=== PATIENT | male | born 1940 | race Caucasian/White ===

== ENCOUNTER 2016-08-16 13:56 | Day surgery (SDC) | payer MEDICARE ==
[~2016-08-16] VITALS: Ht 160 cm; Wt 99.0 kg
--- NOTE | 2016-08-16 06:52 | PCM.HPANE ---
Patient Data Surgeon Admitting Provider: Attending Provider:Brandt Esparza MD Primary Care Physician:Cruzito Canchola MD Other Provider:Starr Dowlingingham Anesthesia Reason for Visit Prostate Cancer Ht/WT & BMI Height (Feet): 5 Height (Inches): 3 Weight (Kilograms): 92.986 Body Mass Index 36.00 Allergies Coded Allergies: Phenylpiperazine Antidepressant (Verified Allergy, Unknown, UNKNOWN, ) Sulfa (Sulfonamide Antibiotics) (Verified Allergy, Unknown, UNKNOWN, ) pramipexole (Verified Allergy, Unknown, UNKNOWN, 08/16/16) Past Anesthesia History Anesthesia History: Denies:: Anesthesia Reactions, Malignant Hyperthermia Diabetes History Hx Diabetes?: No MRSA MRSA: No Medications Hypertension Medication: Yes (TRIAMTERENE/HCTZ) Reported Medications Rasagiline Mesylate (Azilect)1 Mg Tablet1 Mg PO DAILY 08/11/16 Carbidopa/Levodopa 25-250 mg 1 Each Tablet1 Tablet PO 5X/DAY 08/11/16 Donepezil 10 Mg Sryjed06 Mg PO HS Ref 0 08/11/16 Triamterene/HCTZ 37.5-25 mg 1 Each Capsule1 Capsule PO DAILY Ref 0 08/11/16 Discontinued Reported Medications Leuprolide Acetate (Lupron Depot)22.5 Mg Disp.syrin22.5 Mg IM Q 90 DAYS PLEASE VERIFY DOSAGE 08/11/16 History History of ENT Problems?: No Hx of Heart Problems?: Yes Cardiovascular History: Positive for:: Edema Hypertension Denies:: Heart Murmur Hx of Respiratory Problem?: No Respiratory History: Denies:: Use of C-PAP Machine Hx Neurologic Problems?: Yes Neurological History: Positive for:: Dementia (MILD) Parkinson's Disease (ADVANCING/TREMORS) Hx of GI Problems?: Yes Other GI Pertinent History: S/P COLON RESECTION Hx of Problems?: Yes Genitourinary History: Positive for:: Urinary Tract Infection (HX OF) Other Pertinent History: ED Male Hx: Positive for:: Prostate Problems (PROSTATE CA=CURRENT PROBLEM (PT DECLINES MORE INVASIVE TX)) Denies:: Scrotal Mass Testicular Surgery Skin History: Denies:: History Skin Disorders? Pressure Ulcers Hx Musculoskeletal Problems?: Yes Musculoskeletal History: Positive for:: Degenerative Joint (KYPHOSIS) Osteoarthritis (OSTEOPOROSIS) Hx of Psycho/Social Problems?: No Hx Surgeries?: Yes (COLON RESECTION) Hx Any Other Health Problems?: Yes Other History: Positive for:: Cancer (PROSTATE) Denies:: Endocrine Disease Hospitalization Thyroid Disease Hx Diabetes: No Hx Alcohol Use: NoHave You Smoked inLast 12 mo: No Stop/Bang S-Snoring: Do You Snore Loudly: No T-Tired: feel tired, fatigued: No O-Obsered: Observed not breath: No P-Blood Pressure: treated: Yes B- Body Mass Index > 35 kg/m2: Yes A- Age over 50: Yes N- Neck Large Circumference: No G- Gender Male: Yes JOSE ANGEL Total Score: 4 Risk Assessment Category Category 1A: Patient has history of documented sleep apnea, and HAS NOT received any narcotic, sedative or anesthesia administration during this stay. Category 1B: Patient has history of documented sleep apnea, and HAS received any narcotic , sedative or anesthesia administration during this stay Category 2: Patient has SUSPECTED Obstructive Sleep Apnea, and HAS received any narcotic , sedative or anesthesia administration during this stay. Category 3: Patient has SUSPECTED Obstructive Sleep Apnea and HAS NOT received narcotic, sedative or anesthesia administration during this stay. Category 4: Outpatient in Procedural Areas with known sleep apnea or who screen positive for High Risk via the STOP/BANG questionnaire. Exam Exam General Appearance: Alert, Oriented X3, Cooperative, Mild Distress HEENT/AIRWAY: MP 4, Neck Movement (No neck movement, sore neck, Thick Neck, Chan), Mouth Opening (moderate) Lungs: Clear to Auscultation Heart: Exam Unremarkable Plan Impression Patient chart reviewed, patient interviewed and anesthestic plan with risks, benefits, and alternatives discussed, and informed consent obtained. ASA Physical Status: ASA3 Severe Disease Anesthetic Plan: SAB Bene/Risks/Altern/Consents: Yes HP Complete Prior to Induction: Yes Michael Zapien MD Aug 16, 2016 06:52
[~2016-08-16 13:56] MED LIST: Acetaminophen IV 1,000 MG in IV Premix 1 EACH IV ONE; Bupivacaine Liposome 1.3% 20 mL Inj INFILTRATE SCH; CARB1TAB17 PO; CeFAZolin Inj 2 GM in IV Premix 1 EACH IV ONE; DONE10TA42 PO; Lactated Ringer's 1,000 ML IV ONE; RASA1TAB2 PO; TRIA1CAP5 PO; [UNRECOGNIZED DRUG - CODE] IM
[2016-08-16 14:54] VITALS: BP 111/77; PULSE 60; RESP 16; O2SAT 97
[2016-08-16] MEDS ORDERED: Lactated Ringer's 1,000 ML IV SCH (15:57)
[2016-08-16] MEDS ORDERED: Lactated Ringer's 500 ML IV PRN (15:57)
[2016-08-16] MEDS ORDERED: HYDROmorphone 1 mg/mL Inj IVPUSH PRN (16:00)
[2016-08-16] MEDS ORDERED: Ondansetron 2 mg/mL 2 mL Inj IVPUSH PRN (16:00)
[2016-08-16] MEDS ORDERED: Labetalol 5 mg/mL 4 mL Inj IV PRN (16:00)
[2016-08-16] MEDS ORDERED: hydrALAZINE 20 mg/mL Inj IVPUSH PRN (16:00)
[2016-08-16] MEDS ORDERED: fentaNYL-PF 50 mCg/mL 2 mL Inj IVPUSH PRN (16:00)
[2016-08-16] MEDS ORDERED: Atropine 0.4 mg/mL Inj IVPUSH PRN (16:00)
[2016-08-16] MEDS ORDERED: hydrOXYzine Inj 25 MG/1 mL SDV IM PRN (16:00)
[2016-08-16] MEDS ORDERED: Dexamethasone 4 mg/mL Inj IVPUSH PRN (16:00)
[2016-08-16] MEDS ORDERED: Phenylephrine 10,000 mCg/mL Inj IVPUSH PRN (16:00)
[2016-08-16] MEDS ORDERED: EPHEDrine Sulfate 50 mg/mL Inj IM PRN (16:00)
[2016-08-16] MEDS ORDERED: EPHEDrine Sulfate 50 mg/mL Inj IVPUSH PRN (16:00)
[2016-08-16] MEDS ORDERED: Bacitracin Ointment Packet TOPICAL ONE (16:25)
[2016-08-16 16:55] VITALS: BP 124/72; PULSE 76; RESP 12; O2SAT 94
[2016-08-16 17:00] VITALS: BP 150/72; PULSE 72; RESP 14; O2SAT 95
[2016-08-16 17:10] VITALS: BP 146/76; PULSE 61; RESP 16; O2SAT 96
--- NOTE | 2016-08-16 17:12 | PCM.ANEP1 ---
Post Anesthesia Phase 1 PACU Phase 1 Assessment Vital Signs Vital Signs Date Time Temp Pulse Resp B/P Pulse Ox O2 Delivery O2 Flow Rate FiO2 08/16/16 14:54 36.5 60 16 111/77 97 Room Air Anesthetic Administered: GA Level of Alertness: Awake, talking REESE's with Equal Strength: Yes Pain: No Nausea or Vomiting: No Oxygen Delivery: Room Air Lungs: Normal Air Movement Michael Zapien MD Aug 16, 2016 17:12
[2016-08-16 17:34] VITALS: BP 176/88; PULSE 73; RESP 18; O2SAT 97
--- NOTE | 2016-08-16 17:46 | PCM.ANEP2 ---
Post Anesthesia Evaluation ASA/CMS Post Anesthesia VS in Patient's Normal Range?: Yes Resp Stable; Airway Patent?: Yes CV Function & Hydration Stable: Yes Mental Status Recovered?: Yes Pain control Satisfactory?: Yes N/V Control Satisfactory?: Yes Michael Zapien MD Aug 16, 2016 17:46
[2016-08-16 18:05] VITALS: BP 176/86; PULSE 71; RESP 18; O2SAT 98
--- NOTE | 2016-08-17 07:38 | OP ---
[address] [address] OPERATIVE REPORT PATIENT: DELMAR PLUMMER : 1940 MR#: [id number] ADMIT: 08/16/2016 JOB ID: [id number] DATE OF SURGERY: 08/16/2016 PREOPERATIVE DIAGNOSIS(ES): 1. B[place]elia 9 carcinoma of the prostate. 2. Advanced Parkinson's disease. 3. Remote domicile precluding practicality of option of prostatic radiotherapy. POSTOPERATIVE DIAGNOSIS(ES): 1. Florencio 9 carcinoma of the prostate. 2. Advanced Parkinson's disease. 3. Remote domicile precluding practicality of option of prostatic radiotherapy. OPERATION PERFORMED: Bilateral subcapsular simple orchidectomy. SURGEON: Brandt Esparza MD ANESTHESIOLOGIST: Michael Zapien MD ANESTHESIA: Spinal, plus 1.33% Resperal. OPERATIVE SUMMARY: The patient was positioned in semi-lithotomy, and the genitalia were prepped and draped in sterile fashion. A midline incision was made in the scrotal raphae and blunt and cautery dissection was directed toward the left hemiscrotal compartment, whereupon the dartos fascia was divided and the tunic albuginea was encountered. This was then opened. A very small amount of fluid was noted surrounding the relatively atrophic testis, and this was then delivered from the left hemiscrotal compartment. A midline anterior division of the tunica albuginea was then conducted and the seminiferous tubule content of the testis was then swept away from the side dooley. Cautery pen was used for hemostasis. The tissue was amputated at the level of the rete testes and submitted to pathology for gross examination only. The tunica albuginea was then closed with a running locking 0-Vicryl. The inferior pole was secured to the inferior hemiscrotal space with a simple pass of the suture. Hemostasis was excellent. The same steps and maneuvers were performed on the right side to accomplish bilateral simple subcapsular orchiectomy. Next, the dartos fascia was then reapproximated using a running 2-0 Monocryl. The skin was then reapproximated using a running horizontal mattress of 4-0 Monocryl. Antibiotic ointment was applied to the midline scrotal incision and then the patient was fitted with dry sterile fluffs and an athletic supporter. He was then transferred to a [place], and transferred to recovery in stable condition. He tolerated the procedure well.
--- NOTE | 2016-08-18 10:14 | PATH ---
SURGICAL PATHOLOGY Attending Physician:Brandt Esparza MD CASE STATUS: Signed Out PATIENT NAME: DELMAR PLUMMER PID: [id number] : 1940 DATE COLLECTED:08/16/2016 00:00 SPECIMEN: 1: Testis 2: Testis CLINICAL HISTORY: PROSTATE CANCER BILATERAL SUBCAPSULAR ORCHIECTOMY 1). RIGHT SUBCAPSULAR ORCHIECTOMY GROSS EXAM ONLY 2). LEFT SUBCAPSULAR ORCHIECTOMY GROSS EXAM ONLY FINAL DIAGNOSIS: 1. Right Subcapsular Orchiectomy: Testis with no evidence of malignancy or dysplasia. 2. Left Subcapsular Orchiectomy: Testis with no evidence of malignancy or dysplasia. ICD10: C61 GROSS DESCRIPTION: The specimens are received in formalin, labeled with the patient's name, and sublabeled as the following: (1) right subcapsular orchiectomy; (2) left subcapsular orchiectomy. (1) The specimen consists of a piece of testicular parenchyma (6.2 g, 5.0 x 3.3 x 0.8 cm). The parenchyma is brandon and spongy. No nodules or masses or lesions are identified. Ink code: black-resection margin. Section code: (1A) testicular parenchyma, operations support representative. (2) The specimen consists of a piece of testicular parenchyma (6.3 g, 4.8 x 2.5 x 1.1 cm). The parenchyma is brandon and spongy. No nodules or masses or lesions are identified. Ink code: black-resection margin. Section code: (1A) testicular parenchyma, operations support representative. 08/17/16 ICD-9 CODES: CPT CODES: 38205, 21117 Electronically Signed Out Jose Pretty MD [facility] [address], [place] [address] Technical component performed at [facility], [address] [place] [address] Ave[address], [place], [address]
== END 2016-08-16 23:59 | disposition home or self-care (01) ==
LOC: SAS 13:56
PROVIDERS: ATTEND Specialist
DX: C61 Malignant neoplasm of prostate (principal); I10 Essential (primary) hypertension; R60.9 Edema, unspecified; F03.90 Unspecified dementia, unspecified severity, without behavioral disturbance, psychotic disturbance, mood disturbance, and anxiety; M19.90 Unspecified osteoarthritis, unspecified site; Z79.899 Other long term (current) drug therapy
CPT/HCPCS: 54520; J0690; J7120